=== PATIENT | male | born 1995 | race Caucasian/White ===

== ENCOUNTER 2023-03-15 17:51 | Emergency (ER) | payer OTHER, SELFPAY ==
[2023-03-15 17:52] VITALS: BP 146/96; PULSE 87; RESP 16; TEMP 36.6; O2SAT 100; BMI 26.2
--- OUTSIDE RECORDS SUMMARY | 2023-03-15 19:11 | XMS RPT_ITS | CCD ---
Author Name Unknown Address [address] [facility] [address] [place] [address] Organization [facility] Care Team Providers Care An/Ssn 2 4 Operator Name Role Phone MICHELLE HAMILTON Primary Care Unavailable NONE, PCP Referring Unavailable TARYN MCKEON Attending Unavailable SHIMA OCAMPO Referring Unavailable Michelle Hamilton MD Primary Care Provider 1( [phone] Michelle Hamilton MD Primary Care Provider MICHELLE HAMILTON Primary Care Unavailable MICHELLE HAMILTON Attending Unavailable MICHELLE HAMILTON Primary Care Unavailable MICHELLE HAMILTON Attending Unavailable MICHELLE HAMILTON Primary Care Unavailable MICHELLE HAMILTON Attending Unavailable MICHELLE HAMILTON Primary Care Unavailable MICHELLE HAMILTON Referring Unavailable Allergies Allergy Classification Reported Allergen(s) Allergy Type Date of Onset Reaction(s) Facility (4 sources) Seasonal allergy; Translations: [SEASONAL ALLERGIES] Propensity to adverse reactions (disorder) 9 [facility] Repository Problems Active Problems Problem Classification Problem Date Documented Da te Episodic/Chronic Nonspecific chest pain (5 sources) Other chest pain; Translations: [Chest pain] Onset: 08-07-2022 Episodic Other male genital disorders (2 sources) Cyst of epididymis; Translations: [Cyst of epididymis] 11-01-2022 Episodic Other male genital disorders (1 source) Cyst of epididymis; Translations: [Epididymal cyst] Onset: 11-01-2022 Episodic Unclassified (1 source) Establish Care Onset: 01-19-2022 Past or Other Problems Problem Classification Problem Date Documented Da te Episodic/Chronic Immunizations and screening for infectious disease (1 source) Contact with and (suspected) exposure to other viral communicable diseases; Translations: [Encounter by telehealth for suspected COVID-19] Onset: 01-13-2020 Episodic Results Test Name Value Interpretation Reference Range Facil ity Vital Signs Date Time Vital Sign Value Performing Clinician Faci lity 08-21-2023 13:08-0400 Body height 185.4 cm Michelle Hamilton MD Work Phone: [facility] 11-01-2022 13:08-0400 Body temperature 97.59 [degF] Michelle Hamilton MD Work Phone: [facility] 11-01-2022 13:08-0400 Body weight 87.54 kg Michelle Hamilton MD Work Phone: [facility] 11-01-2022 13:08-0400 Diastolic blood pressure 86 mm[Hg] Michelle Hamilton MD Work Phone: [facility] 11-01-2022 13:08-0400 Systolic blood pressure 126 mm[Hg] Michelle Hamilton MD Work Phone: [facility] 08-20-2022 10:24-0400 Body height 185.4 cm Michelle Hamilton MD Work Phone: [facility] 08-20-2022 10:24-0400 Body temperature 98.4 [degF] Michelle Hamilton MD Work Phone: [facility] 08-20-2022 10:24-0400 Body weight 88.45 kg Michelle Hamilton MD Work Phone: [facility] 08-20-2022 10:24-0400 Diastolic blood pressure 80 mm[Hg] Michelle Hamilton MD Work Phone: [facility] 08-20-2022 10:24-0400 Heart rate 130 /min Michelle Hamilton MD Work Phone: [facility] 08-20-2022 10:24-0400 SaO2% (BldA) [Mass fraction] 98 % Michelle Hamilton MD Work Phone: [facility] 08-20-2022 10:24-0400 Systolic blood pressure 120 mm[Hg] Michelle Hamilton MD Work Phone: [facility] 08-07-2022 20:31-0400 Diastolic blood pressure 77 mm[Hg] Taryn Mckoen MD Work Phone: [facility] 08-07-2022 20:31-0400 Heart rate 77 /min Taryn Mckeon MD Work Phone: [facility] 08-07-2022 20:31-0400 Respiratory rate 14 /min Taryn Mckeon MD Work Phone: [facility] 08-07-2022 20:31-0400 SaO2% (BldA) [Mass fraction] 98 % Taryn Mckeon MD Work Phone: [facility] 08-07-2022 20:31-0400 Systolic blood pressure 124 mm[Hg] Taryn Mckeon MD Work Phone: [facility] 08-07-2022 19:21-0400 Body height 185.4 cm Taryn Mckeon MD Work Phone: [facility] 08-07-2022 19:21-0400 Body mass index (BMI) [Ratio] 26.39 kg/m2 Taryn Mckeon MD Work Phone: [facility] 08-07-2022 19:21-0400 Body temperature 98.29 [degF] Taryn Mckeon MD Work Phone: [facility] 08-07-2022 19:21-0400 Body weight 90.72 kg Taryn Mckeon MD Work Phone: [facility] Encounters Encounter Date Encounter Type Care Provider Facility Start: 11-03-2022 Telephone encounter Michelle Higgins MD Work Phone: [facility] Procedures Date Procedure Procedure Detail Performing Clinician Start: 11-01-2022 Blood count complete auto&auto difrntl wbc Michelle Hamilton MD Work Phone: Start: 11-01-2022 Lipid panel Michelle Higgins MD Work Phone: Start: 08-07-2022 Basic metabolic pane l calcium total Taryn Mckeon MD Work Phone: Start: 08-07-2022 Ecg routine ecg w/le ast 12 lds i&r only Taryn Mckeon MD Work Phone: Plan of Treatment Date Care Activity Detail Author Start: 2046 Zoster Vaccines (1 of 2) Zoster Vaccines (1 of 2) [facility] Start: 11-12-2022 Influenza vaccination [facility] Start: 03-14-2022 DEPRESSION ASSESSMENT DEPRESSION ASSESSMENT [facility] Start: 04-17-2021 COVID-19 VACCINE (3 - Booster for Pfizer series) COVID-19 VACCINE (3 - Booster for Pfizer series) [facility] Start: 04-17-2021 COVID-19 VACCINE (3 - Pfizer series) COVID-19 VACCINE (3 - Pfizer series) [facility] Start: 10-19-2017 DTaP/Tdap/Td Vaccines (7 - Td or Tdap) DTaP/Tdap/Td Vaccines (7 - Td or Tdap) [facility] Start: 10-19-2017 Urine microalbumin profile DTAP,TDAP,TD (7 - Td or Tdap) [facility] Start: 2014 HEPATITIS C SCREENING HEPATITIS C SCREENING [facility] Start: 2014 Hepatitis C screening Hepatitis C Screening [facility] Start: 2014 HIV SCREENING HIV SCREENING [facility] Start: 2010 PEDS TO ADULT TRANSITION ANNUAL ASSESSMENT PEDS TO ADULT TRANSITION ANNUAL ASSESSMENT [facility] Start: 2008 Depression Screening Depression Screening [facility] Start: 2008 PEDS TO ADULT TRANSITION INITIAL DISCUSSION PEDS TO ADULT TRANSITION INITIAL DISCUSSION [facility] Start: 08-31-2007 HPV Vaccines (1 - Male 2-dose series) HPV Vaccines (1 - Male 2-dose series) [facility] Start: 2005 HPV VACCINE (1 - Male 2-dose series) HPV VACCINE (1 - Male 2-dose series) [facility] Start: 1996 HIV screening HIV Screening [facility] End: 12-01-2023 Us scrotum & contents US SCROTUM AND CONTENTS Radiology Routine Epididymal cyst 1 Occurrences starting 11/01/2022 until 12/01/2023 [facility] Work Phone: Immunizations Immunization Date Immunization Notes Care Provider Carina villafuerte 09-08-2012 Meningococcal, MCV4, unspecified conjugate formulation(groups A, C, Y and W-135) Michelle Hamilton MD Work Phone: [facility] Work Phone: 10-21-2009 varicella virus vaccine Andres Hamilton MD Work Phone: [facility] 10-20-2007 Meningococcal, MCV4, unspecified conjugate formulation(groups A, C, Y and W-135) Michelle Hamilton MD Work Phone: [facility] 10-20-2007 tetanus toxoid, redu leroy diphtheria toxoid, and acellular pertussis vaccine, adsorbed Michelle Hamilton MD Work Phone: [facility] 02-22-2003 influenza virus vaccine, unspecified formulation Taryn Mckeon MD Work Phone: [facility] Work Phone: 10-13-2001 diphtheria, tetanus toxoids and acellular pertussis vaccine Michelle Hamilton MD Work Phone: [facility] Work Phone: 10-13-2001 measles, mumps and rubella virus vaccine Michelle Hamilton MD Work Phone: [facility] Work Phone: 10-13-2001 poliovirus vaccine, inactivated Michelle Haimlton MD Work Phone: [facility] Work Phone: 10-28-2000 varicella virus vaccine Andres Hamilton MD Work Phone: [facility] Work Phone: 12-06-1997 diphtheria, tetanus toxoids and acellular pertussis vaccine Michelle Hamilton MD Work Phone: [facility] Work Phone: 12-06-1997 haemophilus influenz ae type b vaccine, HbOC conjugate Michelle Hamilton MD Work Phone: [facility] Work Phone: 09-02-1997 measles, mumps and rubella virus vaccine Michelle Hamilton MD Work Phone: [facility] Work Phone: 09-02-1997 trivalent poliovirus vaccine, live, oral Michelle Hamilton MD Work Phone: [facility] Work Phone: 03-04-1997 diphtheria, tetanus toxoids and acellular pertussis vaccine Michelle Hamilton MD Work Phone: [facility] Work Phone: 03-04-1997 haemophilus influenz ae type b vaccine, HbOC conjugate Michelle Hamilton MD Work Phone: [facility] Work Phone: 03-04-1997 hepatitis B vaccine, pediatric or pediatric/adolescent dosage Michelle Hamilton MD Work Phone: [facility] Work Phone: 01-04-1997 diphtheria, tetanus toxoids and acellular pertussis vaccine Michelle Hamilton MD Work Phone: [facility] Work Phone: 01-04-1997 haemophilus influenz ae type b vaccine, HbOC conjugate Michelle Hamilton MD Work Phone: [facility] Work Phone: 01-04-1997 poliovirus vaccine, inactivated Michelle Hamilton MD Work Phone: [facility] Work Phone: 1996 diphtheria, tetanus toxoids and acellular pertussis vaccine Michelle Hamilton MD Work Phone: [facility] Work Phone: 1996 haemophilus influenz ae type b vaccine, HbOC conjugate Michelle Hamilton MD Work Phone: [facility] Work Phone: 1996 poliovirus vaccine, inactivated Michelle Hamilton MD Work Phone: [facility] Work Phone: 1996 hepatitis B vaccine, pediatric or pediatric/adolescent dosage Michelle Hamilton MD Work Phone: [facility] Work Phone: 1996 hepatitis B vaccine, pediatric or pediatric/adolescent dosage Michelle Hamilton MD Work Phone: [facility] Work Phone: Payers Date Payer Category Payer Private Health Insurance [id number] 2022 Private Health Insurance [id number] 2021 Unknown [id number] 2012 Unknown [id number] Social History Date Type Detail Facility Start: 09-15-2013 Tobacco smoking status NHIS Never sm oked tobacco [facility] Start: 09-15-2013 Tobacco use and exposure Smoke less tobacco non-user [facility] Start: 01-19-2022 End: 08-20-2022 Alcohol intake Current non-drinker of alcohol (finding) [facility] Start: 01-09-2020 History SDOH Alcohol Frequency 3 [facility] Start: 01-09-2020 History SDOH Alcohol Std Drinks 1 [facility] Start: 01-09-2020 History SDOH Alcohol Binge 2 [facility] Start: 01-09-2020 History SDOH Social Connections Phone 4 [facility] Start: 01-09-2020 History SDOH Social Connections Living 7 [facility] Start: 01-09-2020 History SDOH Physica l Activity MPS 5 [facility] Start: 01-09-2020 Education 17 [facility] Start: 1996 Sex Assigned At Not on file [facility] Start: 07-28-2022 End: 08-07-2022 Exposure to SARS-CoV-2 (event) Not sure [facility] Start: 11-01-2022 Alcohol intake Current drinke r of alcohol (finding) [facility] Start: 01-09-2020 End: 08-20-2022 History of Social function [facility] Start: 01-09-2020 End: 08-20-2022 Social connection and isolation panel [facility] Do you belong to any clubs or organizations such as scientologist groups, unions, fraternal or athletic groups, or school groups? No [facility] Are you now , , , , never or living with a partner? Never [facility] How often to you hav e a drink containing alcohol? 2-4 times a month [facility] How many standard dr inks containing alcohol do you have on a typical day? 1 or 2 [facility] How often do you hav e 6 or more drinks on 1 occasion? Less than monthly [facility] How hard is it for y ou to pay for the very basics like food, housing, medical care, and heating Not very hard [facility] Adult Depression Scr eening Assessment 0 [facility] Do you feel stress - tense, restless, nervous, or anxious, or unable to sleep at night because your mind is troubled all the time - these days [OSQ] Only a little [facility] (I/We) worried wheth er (my/our) food would run out before (I/we) got money to buy more. Never true [facility] Start: 11-01-2022 Alcohol Comment socially [facility] Clinical Notes 10-22-2010 to 11-03-2022 Telephone Encounter - Michelle Hamilton MD - 11/03/2022 9:02 AM EDTCMohsen vu RT(R) - 11/02/2022 5:00 PM EDTJaMichelle ontiveros MD - 11/01/2022 5:08 PM EDT Note Date & Type Note Facility 11-03-2022 Miscellaneous Notes Called patient to discuss his ultrasound which revealed and confirmed left epididymal cyst. This correlates exactly with our physical findings. Plan is for him to do self testicular exams once a month and call us if there are any changes. documented in this encounter [facility] 11-02-2022 Note HNO ID: [id number] Author: Mohsen Massey RT([place]) Service: Radiology Author Type: Technologist Type: Progress Notes Filed: 11/02/2022 5:23 PM Note Text: Radiology Service Progress Note PATIENT NAME: Jamin Candelaria DATE OF SERVICE: November 02, 2022 TIME: 5:23 PM PATIENT IDENTITY VERIFICATION COMPLETED USING TWO (2) IDENTIFIERS: Name and Date of confirmed by patient verbally. FALL SCREENING: Has the patient had 2 falls in the last year or 1 fall with injury or currently using an Ambulatory Assistive Device (Walker, Cane, Wheelchair, Crutches, etc.)? No PATIENT GENDER DATA: Male PATIENT RELEVANT IMPLANT DATA REVIEWED: Not Applicable RADIOLOGY DEPARTMENT: Ultrasound PERIPHERAL IV DATA: Not applicable SIGNED BY: RT Daniela(R) November 02, 2022 5:23 PM [facility] 11-02-2022 History of Presen t illness Narrative Radiology Service Progress Note PATIENT NAME: Jamin Candelaria DATE OF SERVICE: November 02, 2022 TIME: 5:23 PM PATIENT IDENTITY VERIFICATION COMPLETED USING TWO (2) IDENTIFIERS: Name and Date of confirmed by patient verbally. FALL SCREENING: Has the patient had 2 falls in the last year or 1 fall with injury or currently using an Ambulatory Assistive Device (Walker, Cane, Wheelchair, Crutches, etc.)? No PATIENT GENDER DATA: Male PATIENT RELEVANT IMPLANT DATA REVIEWED: Not Applicable RADIOLOGY DEPARTMENT: Ultrasound PERIPHERAL IV DATA: Not applicable SIGNED BY: RT Daniela(R) November 02, 2022 5:23 PM documented in this encounter [facility] 11-01-2022 Note HNO ID: [id number] Author: Michelle Hamilton MD Service: ? Author Type: Physician Type: Progress Notes Filed: 11/01/2022 5:10 PM Note Text: HPI: Mr. Candelaria is a 27 year old male who presents for wellness exam but also is concerned about a possible left testicular mass. He states he noticed it about 2 weeks ago. It is not painful and it is not enlarging Review of Systems noncontributory PAST MEDICAL HISTORY Diagnosis Date Acne 10/22/2010 resolved ASTHMA 06/23/2000 allergy related Concussion fall of 9th grade resolved Fracture 2010 resolved. right thumb Nose fracture 2011 AND 08/2014 resolved. baseball PMH - PAST MEDICAL HISTORY OF 10/19/06 normal color vision PAST SURGICAL HISTORY Procedure Laterality Date ADENOIDECTOMY PRIMARY CIRCUMCISION W/CLAMP/OTH DEV W/BLOCK PAST SURGICAL HISTORY OF 02/16 tube in left ear FAMILY HISTORY Problem Relation Age of Onset Diabetes Maternal Grandmother Hypertension Maternal Grandfather Hypertension Father Social History Tobacco Use Smoking status: Never Smokeless tobacco: Never Vaping Use Vaping Use: Never used Substance Use Topics Alcohol use: Yes Comment: socially Drug use: No Current Meds No prescriptions on file. BP 126/86 Temp 97.6 Ht 6' 1 (1.85m) Wt 193 lb (87.5kg) BMI 25.47 kg/(m2). Physical Exam Patient is afebrile and well-appearing. HEENT exam normal Neck supple no nodes masses JVD thyromegaly or bruits Heart tones regular rate and rhythm no murmurs gallops clicks or rubs Lungs clear to auscultation Abdomen is soft nontender organomegaly or mass. Right testicle examination unremarkable. Left testicle exam shows a soft cystic subcentimeter enlargement in the head of the epididymis. We do not appreciate any testicular masses or varicocele. No visits with results within 1 Day(s) from this visit. Latest known visit with results is: Appointment on 01/13/2020 Component Date Value Ref Range Status COVID 19 Source SHIPPING RECEIVING MANAGER 01/13/2020 UPPER RESPIRATORY TRACT SWAB Final COVID 19 Result SHIPPING RECEIVING MANAGER 01/13/2020 Negative for COVID19 (SARS CoV2) by PCR. Negative for COVID19 (SARS CoV2) by PCR. Final Comment: This test was developed and its performance characteristics determined by [facility]'s [facility] [place]. This test has been authorized by FDA under an Emergency Use Authorization (EUA). This test has been validated in accordance with the FDA's Guidance Document Policy for Diagnostics Testing in Laboratories Certified to Perform High Complexity Testing under CLIA prior to Emergency use Authorization for Coronavirus Disease 2019 during the Public Health Emergency issued on May 12, 2019. Assessment and Plan Encounter Diagnosis ICD-10-CM 1. Wellness examination Z00.00 COMP METABOLIC PANEL LIPID PANEL BASIC CBC + DIFF 2. Epididymal cyst N50.3 US SCROTUM AND CONTENTS PLAN: 1. Wellness examination obtain CMP lipid panel CBC. 2. Probable epididymal cyst left testicle. Will obtain ultrasound of the scrotum to confirm. No follow-ups on file. We will contact patient with test results I have confirmed and edited as necessary the past medical, family and social histories, HPI, and ROS obtained by others. I spent a total of 20 minutes on the date of the service which included preparing to see the patient, [id number] patient care, completing clinical documentation, obtaining and/or reviewing separately obtained history, performing a medically appropriate examination, counseling and educating the patient/family/caregiver, and ordering medications, tests, or procedures Michelle Hamilton MD. [facility] 11-01-2022 History of Presen t illness Narrative HPI: Mr. Candelaria is a 27 year old male who presents for wellness exam but also is concerned about a possible left testicular mass. He states he noticed it about 2 weeks ago. It is not painful and it is not enlarging Review of Systems noncontributory PAST MEDICAL HISTORY Diagnosis Date Acne 10/22/2010 resolved ASTHMA 06/23/2000 allergy related Concussion fall of 9th grade resolved Fracture 2010 resolved. right thumb Nose fracture 2011 & 08/2014 resolved. baseball PMH - PAST MEDICAL HISTORY OF 10/19/06 normal color vision PAST SURGICAL HISTORY Procedure Laterality Date ADENOIDECTOMY PRIMARY <AGE 13 02/16 CIRCUMCISION W/CLAMP/OTH DEV W/BLOCK PAST SURGICAL HISTORY OF 02/16 tube in left ear FAMILY HISTORY Problem Relation Age of Onset Diabetes Maternal Grandmother Hypertension Maternal Grandfather Hypertension Father Social History Tobacco Use Smoking status: Never Smokeless tobacco: Never Vaping Use Vaping Use: Never used Substance Use Topics Alcohol use: Yes Comment: socially Drug use: No Current Meds No prescriptions on file. BP 126/86 Temp 97.6 Ht 6' 1 (1.85m) Wt 193 lb (87.5kg) BMI 25.47 kg/(m^2). Physical Exam Patient is afebrile and well-appearing. HEENT exam normal Neck supple no nodes masses JVD thyromegaly or bruits Heart tones regular rate and rhythm no murmurs gallops clicks or rubs Lungs clear to auscultation Abdomen is soft nontender organomegaly or mass. Right testicle examination unremarkable. Left testicle exam shows a soft cystic subcentimeter enlargement in the head of the epididymis. We do not appreciate any testicular masses or varicocele. No visits with results within 1 Day(s) from this visit. Latest known visit with results is: Appointment on 01/13/2020 Component Date Value Ref Range Status COVID 19 Source SHIPPING RECEIVING MANAGER 01/13/2020 UPPER RESPIRATORY TRACT SWAB Final COVID 19 Result SHIPPING RECEIVING MANAGER 01/13/2020 Negative for COVID19 (SARS CoV2) by PCR. Negative for COVID19 (SARS CoV2) by PCR. Final Comment: This test was developed and its performance characteristics determined by [facility]'s Remberto A[facility] [place]. This test has been authorized by FDA under an Emergency Use Authorization (EUA). This test has been validated in accordance with the FDA's Guidance Document Policy for Diagnostics Testing in Laboratories Certified to Perform High Complexity Testing under CLIA prior to Emergency use Authorization for Coronavirus Disease 2019 during the Public Health Emergency issued on May 12, 2019. Assessment and Plan Encounter Diagnosis ICD-10-CM 1. Wellness examination Z00.00 COMP METABOLIC PANEL LIPID PANEL BASIC CBC + DIFF 2. Epididymal cyst N50.3 US SCROTUM AND CONTENTS PLAN: 1. Wellness examination obtain CMP lipid panel CBC. 2. Probable epididymal cyst left testicle. Will obtain ultrasound of the scrotum to confirm. No follow-ups on file. We will contact patient with test results I have confirmed and edited as necessary the past medical, family and social histories, HPI, and ROS obtained by others. I spent a total of 20 minutes on the date of the service which included preparing to see the patient, [id number] patient care, completing clinical documentation, obtaining and/or reviewing separately obtained history, performing a medically appropriate examination, counseling and educating the patient/family/caregiver, and ordering medications, tests, or procedures Michelle Hamilton MD. documented in this encounter [facility] 08-20-2022 Note HNO ID: [id number] Author: Michelle Hamilton MD Service: ? Author Type: Physician Type: Progress Notes Filed: 08/20/2022 12:20 PM Note Text: HPI: Mr. Candelaria is a 26 year old male who presents for chief complaint of ER follow-up of chest discomfort. Patient has been lifting weights doing a chest workout. Later that day he felt a anterior chest pain that has intensified he became concerned and went to an urgent care. Patient reports he was evaluated at EKG at the urgent care because of EKG concerns sent on to ER. In the ER he had a repeat EKG cardiac enzymes and was discharged without diagnosis of cardiac etiology. Since discharge she has been asymptomatic. Review of Systems noncontributory PAST MEDICAL HISTORY Diagnosis Date Acne 10/22/2010 resolved ASTHMA 06/23/2000 allergy related Concussion fall of 9th grade resolved Fracture 2010 resolved. right thumb Nose fracture 2011 AND 08/2014 resolved. baseball PMH - PAST MEDICAL HISTORY OF 10/19/06 normal color vision PAST SURGICAL HISTORY Procedure Laterality Date ADENOIDECTOMY PRIMARY CIRCUMCISION W/CLAMP/OTH DEV W/BLOCK PAST SURGICAL HISTORY OF 02/16 tube in left ear FAMILY HISTORY Problem Relation Age of Onset Diabetes Maternal Grandmother Hypertension Maternal Grandfather Hypertension Father Social History Tobacco Use Smoking status: Never Smokeless tobacco: Never Substance Use Topics Alcohol use: No Drug use: No Current Meds No prescriptions on file. BP 120/80 Pulse 130 Temp 98.4 Ht 6' 1 (1.85m) Wt 195 lb (88.5kg) SpO2 98% BMI 25.73 kg/(m2). Physical Exam Patient is a muscular fit male. No acute distress. Nurse recorded a pulse of 130 but his heart tones are regular there are no murmurs gallops clicks or rubs and his pulse is in the 70s. The chest wall is slightly tender to palpation over the costochondral joints His lungs are clear. I reviewed images of both EKGs. Hardcopy from the urgent care in [facility] have been in the ER. I agree that there are no acute changes. No visits with results within 1 Day(s) from this visit. Latest known visit with results is: Appointment on 01/13/2020 Component Date Value Ref Range Status COVID 19 Source SHIPPING RECEIVING MANAGER 01/13/2020 UPPER RESPIRATORY TRACT SWAB Final COVID 19 Result SHIPPING RECEIVING MANAGER 01/13/2020 Negative for COVID19 (SARS CoV2) by PCR. Negative for COVID19 (SARS CoV2) by PCR. Final Comment: This test was developed and its performance characteristics determined by [facility]'s [facility] Pathology and Laboratory Medicine [place]. This test has been authorized by FDA under an Emergency Use Authorization (EUA). This test has been validated in accordance with the FDA's Guidance Document Policy for Diagnostics Testing in Laboratories Certified to Perform High Complexity Testing under CLIA prior to Emergency use Authorization for Coronavirus Disease 2019 during the Public Health Emergency issued on May 12, 2019. Assessment and Plan Encounter Diagnosis ICD-10-CM 1. Chest pain, unspecified type R07.9 PLAN: 1. Chest pain resolved. Unlikely to be cardiac etiology. If symptoms return or persist an echocardiogram will be reasonable. Patient will call me if they do. No follow-ups on file. I have confirmed and edited as necessary the past medical, family and social histories, HPI, and ROS obtained by others. I spent a total of 20 minutes on the date of the service which included preparing to see the patient, [id number] patient care, completing clinical documentation, obtaining and/or reviewing separately obtained history, performing a medically appropriate examination, counseling and educating the patient/family/caregiver, and ordering medications, tests, or procedures Michelle Hamilton MD. [facility] 08-20-2022 History of Presen t illness Narrative HPI: Mr. Candelaria is a 26 year old male who presents for chief complaint of ER follow-up of chest discomfort. Patient has been lifting weights doing a chest workout. Later that day he felt a anterior chest pain that has intensified he became concerned and went to an urgent care. Patient reports he was evaluated at EKG at the urgent care because of EKG concerns sent on to ER. In the ER he had a repeat EKG cardiac enzymes and was discharged without diagnosis of cardiac etiology. Since discharge she has been asymptomatic. Review of Systems noncontributory PAST MEDICAL HISTORY Diagnosis Date Acne 10/22/2010 resolved ASTHMA 06/23/2000 allergy related Concussion fall of 9th grade resolved Fracture 2010 resolved. right thumb Nose fracture 2011 & 08/2014 resolved. baseball PMH - PAST MEDICAL HISTORY OF 10/19/06 normal color vision PAST SURGICAL HISTORY Procedure Laterality Date ADENOIDECTOMY PRIMARY <AGE 13 02/16 CIRCUMCISION W/CLAMP/OTH DEV W/BLOCK PAST SURGICAL HISTORY OF 02/16 tube in left ear FAMILY HISTORY Problem Relation Age of Onset Diabetes Maternal Grandmother Hypertension Maternal Grandfather Hypertension Father Social History Tobacco Use Smoking status: Never Smokeless tobacco: Never Substance Use Topics Alcohol use: No Drug use: No Current Meds No prescriptions on file. BP 120/80 Pulse 130 Temp 98.4 Ht 6' 1 (1.85m) Wt 195 lb (88.5kg) SpO2 98% BMI 25.73 kg/(m^2). Physical Exam Patient is a muscular fit male. No acute distress. Nurse recorded a pulse of 130 but his heart tones are regular there are no murmurs gallops clicks or rubs and his pulse is in the 70s. The chest wall is slightly tender to palpation over the costochondral joints His lungs are clear. I reviewed images of both EKGs. Hardcopy from the urgent care in [facility] have been in the ER. I agree that there are no acute changes. No visits with results within 1 Day(s) from this visit. Latest known visit with results is: Appointment on 01/13/2020 Component Date Value Ref Range Status COVID 19 Source SHIPPING RECEIVING MANAGER 01/13/2020 UPPER RESPIRATORY TRACT SWAB Final COVID 19 Result SHIPPING RECEIVING MANAGER 01/13/2020 Negative for COVID19 (SARS CoV2) by PCR. Negative for COVID19 (SARS CoV2) by PCR. Final Comment: This test was developed and its performance characteristics determined by [facility]'s [facility] Pathology and Laboratory Medicine [place]. This test has been authorized by FDA under an Emergency Use Authorization (EUA). This test has been validated in accordance with the FDA's Guidance Document Policy for Diagnostics Testing in Laboratories Certified to Perform High Complexity Testing under CLIA prior to Emergency use Authorization for Coronavirus Disease 2019 during the Public Health Emergency issued on May 12, 2019. Assessment and Plan Encounter Diagnosis ICD-10-CM 1. Chest pain, unspecified type R07.9 PLAN: 1. Chest pain resolved. Unlikely to be cardiac etiology. If symptoms return or persist an echocardiogram will be reasonable. Patient will call me if they do. No follow-ups on file. I have confirmed and edited as necessary the past medical, family and social histories, HPI, and ROS obtained by others. I spent a total of 20 minutes on the date of the service which included preparing to see the patient, [id number] patient care, completing clinical documentation, obtaining and/or reviewing separately obtained history, performing a medically appropriate examination, counseling and educating the patient/family/caregiver, and ordering medications, tests, or procedures Michelle Hamilton MD. documented in this encounter [facility] 08-11-2022 Miscellaneous Notes Patient scheduled for 08/20/22 first available. Patient instructed that if symptoms worsen or change he needs to go to ER. He understood. Lauryn Flores MA First available none same-day or emergency appointment Patient was in [facility] on 08/07/22 for some chest heaviness. They did some testing and didn't figure anything out. All of the testing seemed to come back normal as far as he knew. He is still feeling tired, and his chest is tight. He was supposed to make a hospital follow up. Is this an urgent appointment or when would you like to see him? Lauryn Flores MA documented in this encounter [facility] 08-07-2022 Emergency department Note DC instructions to patient. Patient and visitor ambulated to exit. Crow Carvajal RN 08/07/222034 [facility] 08-07-2022 Emergency department Note DC instructions to patient. Patient and visitor ambulated to exit. Crow Carvajal RN 08/07/222034 Emergency Department Encounter Pt Name: Jamin Candelaria Birthdate 1995 Date of evaluation: 08/07/2022 Provider: TARYN MCKEON MD CHIEF COMPLAINT Chief Complaint Patient presents with Chest Pain Heaviness onset 08/06, 04/23 HISTORY OF PRESENT ILLNESS HPI Jamin Candelaria is a 26 y.o. male with history that includes asthma presents to the emergency room complaining of chest tightness that began today. His focus before when he is about to get sick. Went to urgent care and was advised to come to the emergency department because an ECG showed a prolonged QTc. The ECG was brought in and the QTc was in the 490 range. He feels slightly fatigued but has no other symptoms including no shortness of breath despite what is written in the transfer intake note that I see in the chart. No cough, congestion, urinary symptoms, GI symptoms. Nursing Notes were reviewed. Past Medical History: Diagnosis Date Asthma REVIEW OF SYSTEMS Review of Systems Several elements of the ROS reviewed and otherwise acutely negative except as in the HPI. PHYSICAL EXAM ED Triage Vitals [08/07/221920] Temp Heart Rate Resp BP 36.8 C (98.3 F) 96 16 (!) 141/77 SpO2 Temp Source Heart Rate Source Patient Position 100 % Oral Monitor Lying BP Location FiO2 (%) Left arm -- Physical Exam Vitals and nursing note reviewed. Constitutional: General: He is not in acute distress. Appearance: He is well-developed. HENT: Head: Normocephalic and atraumatic. Eyes: Conjunctiva/sclera: Conjunctivae normal. Cardiovascular: Rate and Rhythm: Normal rate and regular rhythm. Heart sounds: No murmur heard. Pulmonary: Effort: Pulmonary effort is normal. No respiratory distress. Breath sounds: Normal breath sounds. Abdominal: Palpations: Abdomen is soft. Tenderness: There is no abdominal tenderness. Musculoskeletal: General: No swelling. Cervical back: Neck supple. Right lower leg: No tenderness. No edema. Left lower leg: No tenderness. No edema. Skin: General: Skin is warm and dry. Capillary Refill: Capillary refill takes less than 2 seconds. Neurological: Mental Status: He is alert. Psychiatric: Mood and Affect: Mood normal. EMERGENCY DEPARTMENT COURSE and DIFFERENTIAL DIAGNOSIS/MDM: Vitals: Vitals: 08/07/22192008/07/222030 BP: (!) 141/77 124/77 BP Location: Left arm Patient Position: Lying Pulse: 96 77 Resp: 16 14 Temp: 36.8 C (98.3 F) TempSrc: Oral SpO2: 100% 98% Weight: 90.7 kg (200 lb) Height: 1.854 m (6' 1 ) The patient presented with a chief complaint of chest tightness. 26 years of age, ACS is unlikely but an ECG was obtained, sinus rhythm 97 bpm with normal QTc of [address] or T wave changes suggestive of acute ischemia. RSR prime in V1 and V2. Troponin was checked despite the low likelihood of ACS and was negative. Highly doubt pulmonary embolism given the unremarkable vital signs, lack of shortness of breath, lack of risk factors. Lung exam does not reveal evidence of pneumonia. CBC and BMP were checked and were both clinically unremarkable. Discussed with patient discharge plan; he will return to the emergency department if his symptoms worsen in order to be reevaluated, otherwise he will follow-up with PCP. Diagnostic tests considered but not performed: d-dimer External records reviewed: See HPI Diagnostics I interpreted: ECG(s) sinus rhythm 97 bpm with normal QTc of [address] or T wave changes suggestive of acute ischemia. ED Course as of 08/07/222223 Sat August 07, 20221953 CBC auto differential(!) Clinically unremarkable [AK] ED Course User Index [AK] Taryn Mckeon MD Diagnoses as of 08/07/222223 Chest tightness CONSULTS: None PROCEDURES: Unless otherwise noted below, none Procedures DISPOSITION/PLAN Discharge 08/07/2022 08:13:11 PM PATIENT REFERRED TO: Michelle Hamilton MD [address] [place] [address] Schedule an appointment as soon as possible for a visit in 1 week DISCHARGE MEDICATIONS: ED Prescriptions None There are no discharge medications for this patient. Taryn Mckeon MD Emergency Medicine Taryn Mckeon MD 08/07/222223 Ambulated to ED rm 4 independently c/o midsternal chest pressure onset 08/06. No radiation of pain. States feels like pressure he feels when he's about to get sick. Seen at urgent care in [place] and referred here. Gowned and ECG done. Crow Carvajal RN 08/07/221924 documented in this encounter [facility] 08-07-2022 Physician Emergency department Note Emergency Department Encounter Pt Name: Jamin Candelaria Birthdate 1995 Date of evaluation: 08/07/2022 Provider: TARYN MCKEON MD CHIEF COMPLAINT Chief Complaint Patient presents with Chest Pain Heaviness onset 08/06, 2/10 HISTORY OF PRESENT ILLNESS HPI Jamin Candelaria is a 26 y.o. male with history that includes asthma presents to the emergency room complaining of chest tightness that began today. His focus before when he is about to get sick. Went to urgent care and was advised to come to the emergency department because an ECG showed a prolonged QTc. The ECG was brought in and the QTc was in the 490 range. He feels slightly fatigued but has no other symptoms including no shortness of breath despite what is written in the transfer intake note that I see in the chart. No cough, congestion, urinary symptoms, GI symptoms. Nursing Notes were reviewed. Past Medical History: Diagnosis Date Asthma REVIEW OF SYSTEMS Review of Systems Several elements of the ROS reviewed and otherwise acutely negative except as in the HPI. PHYSICAL EXAM ED Triage Vitals [08/07/221920] Temp Heart Rate Resp BP 36.8 C (98.3 F) 96 16 (!) 141/77 SpO2 Temp Source Heart Rate Source Patient Position 100 % Oral Monitor Lying BP Location FiO2 (%) Left arm -- Physical Exam Vitals and nursing note reviewed. Constitutional: General: He is not in acute distress. Appearance: He is well-developed. HENT: Head: Normocephalic and atraumatic. Eyes: Conjunctiva/sclera: Conjunctivae normal. Cardiovascular: Rate and Rhythm: Normal rate and regular rhythm. Heart sounds: No murmur heard. Pulmonary: Effort: Pulmonary effort is normal. No respiratory distress. Breath sounds: Normal breath sounds. Abdominal: Palpations: Abdomen is soft. Tenderness: There is no abdominal tenderness. Musculoskeletal: General: No swelling. Cervical back: Neck supple. Right lower leg: No tenderness. No edema. Left lower leg: No tenderness. No edema. Skin: General: Skin is warm and dry. Capillary Refill: Capillary refill takes less than 2 seconds. Neurological: Mental Status: He is alert. Psychiatric: Mood and Affect: Mood normal. EMERGENCY DEPARTMENT COURSE and DIFFERENTIAL DIAGNOSIS/MDM: Vitals: Vitals: 08/07/22192008/07/222030 BP: (!) 141/77 124/77 BP Location: Left arm Patient Position: Lying Pulse: 96 77 Resp: 16 14 Temp: 36.8 C (98.3 F) TempSrc: Oral SpO2: 100% 98% Weight: 90.7 kg (200 lb) Height: 1.854 m (6' 1 ) The patient presented with a chief complaint of chest tightness. 26 years of age, ACS is unlikely but an ECG was obtained, sinus rhythm 97 bpm with normal QTc of [address] or T wave changes suggestive of acute ischemia. RSR prime in V1 and V2. Troponin was checked despite the low likelihood of ACS and was negative. Highly doubt pulmonary embolism given the unremarkable vital signs, lack of shortness of breath, lack of risk factors. Lung exam does not reveal evidence of pneumonia. CBC and BMP were checked and were both clinically unremarkable. Discussed with patient discharge plan; he will return to the emergency department if his symptoms worsen in order to be reevaluated, otherwise he will follow-up with PCP. Diagnostic tests considered but not performed: d-dimer External records reviewed: See HPI Diagnostics I interpreted: ECG(s) sinus rhythm 97 bpm with normal QTc of [address] or T wave changes suggestive of acute ischemia. ED Course as of 08/07/222223 Sat August 07, 20221953 CBC auto differential(!) Clinically unremarkable [AK] ED Course User Index [AK] Taryn Mckeon MD Diagnoses as of 08/07/222223 Chest tightness CONSULTS: None PROCEDURES: Unless otherwise noted below, none Procedures DISPOSITION/PLAN Discharge 08/07/2022 08:13:11 PM PATIENT REFERRED TO: Michelle Hamilton MD [address] [place] [address] Schedule an appointment as soon as possible for a visit in 1 week DISCHARGE MEDICATIONS: ED Prescriptions None There are no discharge medications for this patient. Taryn Mckeon MD Emergency Medicine Taryn Mckeon MD 08/07/222223 [employer] Work Phone: 08-07-2022 Emergency department Note Ambulated to ED rm 4 independently c/o midsternal chest pressure onset 08/06. No radiation of pain. States feels like pressure he feels when he's about to get sick. Seen at urgent care in [place] and referred here. Gowned and ECG done. Crow Carvajal RN 08/07/221924 [employer] 01-19-2022 Note HNO ID: [id number] Author: Michelle Hamilton MD Service: ? Author Type: Physician Type: Progress Notes Filed: 01/19/2022 5:07 PM Note Text: SUBJECTIVE: Patient presents to establish his care here. Part of the visit he is to follow-up on a skin nodule evaluated by the urgent care in the left scrotum 2 weeks ago. Patient reports he was told it was probably an infected hair and patient put some antibiotic ointment on it and then squeezed it and it seems to be resolving. Past medical history significant for childhood asthma and currently not an active problem. No medications vitamins or supplements. No known drug allergies. Past surgical history includes tympanostomy tubes and wisdom teeth. Family medical history insignificant. Note history of tobacco use. Alcohol use estimated is 2 times per month moderate drinking. OBJECTIVE: Patient is well-appearing. Initial blood pressure 130/88 recheck 122/82. HEENT exam normal Neck supple no nodes masses JVD thyromegaly or bruits Heart tones normal Lungs are clear Abdomen is soft nontender organomegaly or mass. Skin of the scrotum is examined. There is a palpable subcentimeter cutaneous firmness which is consistent with a resolving small abscess. We do not appreciate any testicular masses or regional adenopathy. ASSESSMENT/PLAN: 1. Skin nodule resolving. Patient will let us know if it is not totally resolved in 4 weeks. 2. Also suggested that he return in some time for cholesterol screening. Michelle Hamilton MD [facility] documented as of this encounter (statuses as of 08/20/2022) [facility] History of Past illness Narrative* Problem Noted Date Resolved Date Acne 10/22/2010 10/11/2014 ASTHMA 06/23/2000 12/17/2015 Overview: allergy related documented as of this encounter (statuses as of 08/11/2022) [facility] History of Past illness Narrative* Problem Noted Date Diagnosed Date Resolved Date Acne 10/22/2010 10/11/2014 ASTHMA 06/23/2000 12/17/2015 Overview: allergy related documented as of this encounter (statuses as of 11/02/2022) [facility] History of Past illness Narrative* Problem Noted Date Diagnosed Date Resolved Date Acne 10/22/2010 10/11/2014 ASTHMA 06/23/2000 12/17/2015 Overview: allergy related documented as of this encounter (statuses as of 11/03/2022) [facility] History of Past illness Narrative* Problem Noted Date Diagnosed Date Resolved Date Acne 10/22/2010 10/11/2014 ASTHMA 06/23/2000 12/17/2015 Overview: allergy related documented as of this encounter (statuses as of 11/03/2022) [facility] Diagnosis Chest pain, unspecified type- Primary documented in this encounter [facility] note* Diagnosis Chest tightness- Primary Other chest pain documented in this encounter [facility] note* Diagnosis Wellness examination- Primary Epididymal cyst Other specified disorder of male genital organs documented in this encounter [facility] note* Diagnosis Epididymal cyst Other specified disorder of male genital organs [facility] Attachments The following attachments cannot be sent through Care Everywhere. * Chest Pain, Adult ED ([place]ic) [facility] Diagnostic Procedure Only (Routine) - Authorized Specialty Diagnoses / Procedures Referred By Bart campos Referred To Contact US IMAGING Diagnoses Epididymal cyst Procedures US SCROTUM AND CONTENTS US SCROTUM & CONTENTS Michelle Hamilton MD [facility] [place] [address] [place] [address] Referral ID Status Reason Start Date Expiration Date Visits Requested Visits Authorized [id number] Authorized Auto-Generat ed Referral 11/01/2022 12/01/2023 1 1 [facility] for visit Narrative* Diagnostic Procedure Only (Routine) - Closed Specialty Diagnoses / Procedures Referred By Bart campos Referred To Contact US IMAGING Diagnoses Epididymal cyst Procedures US SCROTUM AND CONTENTS US SCROTUM & CONTENTS Michelle Hamilton MD [address] [place] [address] [place] [address] Referral ID Status Reason Start Date Expiration Date V isits Requested Visits Authorized [id number] Closed Auto-Generate d Referral 11/01/2022 12/01/2023 1 1 [facility] Summary Purpose Family History No Family History Records FoundNo Family History Records FoundNo Family History Records Found Advance Directives No Advanced Directives Records FoundNo Advanced Directives Records FoundNo Advanced Directives Records Found Additional Source Comments (unrecognized sect ion and content) No Status Records FoundNo Status Records FoundNo Status Records Found INFORMATION SOURCE (unrecogn ized section and content) DATE CREATED AUTHOR AUTHOR'S ORGANIZ ATION 08/20/2022 [facility] DATE CREATED AUTHOR AUTHOR'S ORGANIZ ATION 11/03/2022 [facility] Source Comments (unrecognize d section and content) In the event this informatio n is protected by the Federal Confidentiality of Alcohol and Drug Abuse Patient Records regulations: The Federal rules restrict any use of the information to criminally investigate or prosecute any alcohol or drug abuse patient.[facility] the event this information is protected by the Federal Confidentiality of Alcohol and Drug Abuse Patient Records regulations: The Federal rules restrict any use of the information to criminally investigate or prosecute any alcohol or drug abuse patient.[facility] the event this information is protected by the Federal Confidentiality of Alcohol and Drug Abuse Patient Records regulations: The Federal rules restrict any use of the information to criminally investigate or prosecute any alcohol or drug abuse patient.[facility] the event this information is protected by the Federal Confidentiality of Alcohol and Drug Abuse Patient Records regulations: The Federal rules restrict any use of the information to criminally investigate or prosecute any alcohol or drug abuse patient.[facility] the event this information is protected by the Federal Confidentiality of Alcohol and Drug Abuse Patient Records regulations: The Federal rules restrict any use of the information to criminally investigate or prosecute any alcohol or drug abuse patient.[facility] Reason for Visit (unrecogniz ed section and content) Reason Comments Chest Pain Heaviness onset , 04/23 Reason Comments Appointment Hospital Follow Up Reason Comments Physical Lump Testicle Reason Comments Results Care Teams (unrecognized sec tion and content) An/Ssn 2 4 Operator Relationship Specialty Start Date End Date Michelle Hamilton MD [address] [place], [place] [id number] PCP - General 01/02/22 An/Ssn 2 4 Operator Relationship Specialty Start Date End Date Michelle Hamilton MD [address] [place] [id number] PCP - General Family Medicine 01/01/22 An/Ssn 2 4 Operator Relationship Specialty Start Date End Date Michelle Hamilton MD [address] [place] [address] PCP - General Family Medicine 01/01/22 An/Ssn 2 4 Operator Relationship Specialty Start Date End Date Michelle Hamilton MD [address] [place] [phone] PCP - [facility] Medicine 01/01/22 An/Ssn 2 4 Operator Relationship Specialty Start Date End Date Michelle Hamilton MD [address] [place] [phone] PCP - [facility] Family [facility] 01/01/22 FOR RECORDS PERTAINING TO PATIENTS WHO ARE OR HAVE BEEN ENROLLED IN A CHEMICAL DEPENDENCY/SUBSTANCEABUSE PROGRAM, SOME INFORMATION MAY BE OMITTED. This clinical summary was aggregated from multiple sources. Caution should be exercised in using it in the provision of clinical care. This summary normalizes information from multiple sources, and as a consequence, information in this document may materially change the coding, format and clinical context of patient data. In addition, data may be omitted in some cases. CLINICAL DECISIONS SHOULD BE BASED ON THE PRIMARY CLINICAL RECORDS. [facility] [employer] [facility]. provides no warranty or guarantee of the accuracy or completeness of information in this document.
--- NOTE | 2023-03-15 22:19 | ED.VIS.GI ---
HPI HPI - GI History of Present Illness Chief Complaint: Foreign Body Narrative Narrative: 27-year-old male presenting with foreign body sensation to the esophagus. He states he ate a [place] earlier while he was running down the stairway and felt he choked on it. He coughed this up and has had an irritation to his throat since. He went to the urgent care where they told him he needed to go to the emergency room immediately because they felt he would need a CT scan and lab work. Patient states that he was able to drink water and pop without any difficulty. Is been tolerating his own secretions. He has minimal irritation to the throat without distinct pain. He was otherwise healthy prior to this. PFSH PFSH Medical History no medical history Home Medications hydrocodone-acetaminophen 5-325mg 5mg-325mg 1 - 2 tab PO Q4H PRN PRN Pain ##20 11/08/14 [Rx Last Taken Unknown] Allergy/AdvReac Type Severity Reaction Status Date / Time No Known Allergies Allergy Verified 03/15/23 17:54 Surgical History no surgical history Social History Smoking Status: Never smoker ROS ROS ED Constitutional Constitutional ED: Denies chills, fever(s) or sweats Eyes Eyes: Denies blurry vision or change in vision ENT ENT ED: Denies ear pain or sore throat Cardiovascular Cardiovascular: Denies chest pain, palpitations or racing heartbeat Respiratory/Chest Respiratory/Chest: Denies cough, dyspnea or sputum Gastrointestinal Gastrointestinal: Reports other Details: Foreign body sensation esophagus ; Denies abdominal pain, constipation, diarrhea, nausea or vomiting Genitourinary Genitourinary ED: Denies dysuria, hematuria or urinary frequency Musculoskeletal Musculoskeletal: Denies arthralgias, myalgias or neck pain Integumentary Denies abscess, Abrasions or rash Neurologic Neurologic: Denies headache(s), paresthesias or weakness Psychiatric Psychiatric: Denies anxiety, depression, suicidal ideation or suicidal thoughts Endocrine Endocrinology: Denies polydipsia or polyuria EXAM Physical Exam Const Vital Signs: 03/15/23 17:52 03/15/23 19:08 Temperature 97.8 F Temperature Source Temporal Pulse Rate 87 Respiratory Rate 16 Respiratory Effort Normal Non-Labored Respiratory Pattern Normal Blood Pressure 146/96 H Blood Pressure Mean 112 Pulse Ox 100 Oxygen Delivery Method Room Air Positive well nourished and well developed General Appearance ED: well developed; Negative for pallor HEENT Reports moist mucous membranes normocephalic Eyes PERRL and EOMs intact bilaterally Neck no lymphadenopathy and supple Neck Narrative: No stridor Resp normal respiratory effort and clear to auscultation bilaterally Neuro CN's II-XII intact bilaterally Sensorium / Orientation: alert Psych mental status grossly normal Skin no wounds General Skin Exam: Negative for jaundice or pallor MDM MDM MDM Narrative Medical decision making narrative: Patient physical exam and history consistent with globus hystericus. Patient counseled he does not need imaging or lab work. He is tolerating his own secretions. Is able to drink pop and water without any difficulty. Patient counseled he might have this sensation for few days. Recommended to eat soft foods and start PPI. He is given follow-up to GI if this becomes an issue. Return precautions pilar. Impression: 1. Globus hystericus Lab Data Attestation: I reviewed the patient's lab results. Discharge Plan Triage Chief Complaint: Foreign Body ED Provider: Bandar Evans Dx/Rx/DC Orders Instructions: ED Esophageal Foreign Body, Resolved Prescriptions: No Action hydrocodone-acetaminophen 1 TABLET tablet 1 - 2 tab PO Q4H PRN PRN (Reason: Pain) Qty: 20 0RF Primary Care Provider: Care Physician,No Primary Referrals: Carlos Gordon DO [Med Staff - Active Staff] - 3-5 Days Care Physician,No Primary [Primary Care Provider] - Disposition Disposition: Home, Self Care Discharge Date/Time: 03/15/23 19:54
== END 2023-03-15 19:54 | disposition home or self-care (01) ==
PROVIDERS: Emergency Provider Student in an Organized Health Care Education/Training Program; Visit Provider Student in an Organized Health Care Education/Training Program
DX: F45.8 Other somatoform disorders (principal)
CPT/HCPCS: 99282